=== PATIENT | female | born 1960 | race Hispanic/Latino ===

== ENCOUNTER 2020-01-15 20:28 | Emergency (ER) | payer BC ==
[~2020-01-15] VITALS: Ht 152.4 cm; Wt 54.4 kg
--- OUTSIDE RECORDS SUMMARY | 2020-01-15 20:31 | XMS REPORT ---
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 Robinson Deepa MattaFranco ENCOUNTERS Date Type Provider Location Encounter Diagnosis - Ambulatory Encounter Robinson Araujo [facility] UNK - Ambulatory Encounter Enrrique Godoy [facility] UNK - Ambulatory Encounter Robinson Bowers A Franco [facility] UNK - Ambulatory Encounter Robinson Bowers A Franco [facility] UNK - Ambulatory Encounter Robinson Guerraa Robinson A Franco Pathak [facility] UNK - Ambulatory Encounter Jennifer Abraham [facility] UNK - Ambulatory Encounter Gautam Ambriz [facility] UNK - Ambulatory Encounter Robinson A Franco Robinson A Franco [facility] UNK - Ambulatory Encounter Robinson A Franco Robinson A Franco [facility] UNK - Ambulatory Encounter Robinson A Franco Robinson A Francokatya Thomas [facility] UNK - Ambulatory Encounter Jessica Anaya [facility] UNK - Ambulatory Encounter Robinson A Franco Robinson A Franco [facility] UNK - Ambulatory Encounter Leora Mckeon [facility] UNK - Ambulatory Encounter [facility]lene [facility] UNK - Ambulatory Encounter Fax Status [facility] UNK - Ambulatory En[facility]epa [facility] - [facility] Leora Mckeon [facility] UNK - Ambulatory Encounter Leora Mckeon [facility] UNK - Ambulatory Encounter Robinson A Franco Robinson A Franco [facility] UNK - Ambulatory Encounter Robinson A Franco Robinson A Franco [place] [facility] Cervix, screening for malignant neoplasm - Ambulatory Encounter Robinson A Franco Robinson A Franco [place] [facility] Cervix, screening for malignant neoplasmScreening for malignant neoplasm, vagina - Ambulatory Encounter Robinson A Franco Gamez [facility] UNK - Ambulatory Encounter Robinson Gamez [facility] UNK - Ambulatory Encounter Robinson Gamez Wally Mckeon [place] [facility] Annual field artillery operations man examMammogram not high risk screeningScreening for vaginal cancerAtrophic vaginitisHx of osteopeniaSjogren's syndromeGERD - reflux, esophageal VITAL SIGNS Date Observation Value Provider oxygen saturation, oximetry 98 % Renata Pathak " method used to obtain blood pressure automatic Renata Pathak " Blood Pressure Position 01 SA Renata Pathak " blood pressure, site #1 left arm Renata Pathak " blood pressure, diastolic 80 mm[Hg] Renata Pathak " blood pressure, systolic 123 mm[Hg] Renata Pathak " respiratory rate E&M 16 /min Renata Pathak " pulse rate E&M 96 /min Renata Pathak " temperature site oral Renata Pathak " temperature E&M 97.7 [degF] Renata Pathak " weight E&M 107.20 lbs. Renata Pathak " weight in kilograms E&M 48.73 kg Renata Pathak " height E&M 60 [in_i] Renata Pathak " height in centimeters E&M 152.40 cm Renata Pathak method used to obtain blood pressure automatic Poli Thomas " Blood Pressure Position 01 sitting Poli Thomas " blood pressure, site #1 left arm Poli Thomas " pulse rate E&M 78 /min Poli Thomas " respiratory rate E&M 16 /min Poli Thomas " blood pressure, diastolic 68 mm[Hg] Poli Thomas " blood pressure, systolic 103 mm[Hg] Poli Thomas " oxygen saturation, oximetry 97 % Poli Thomas " weight E&M 112.38 lbs. Poli Thomas " weight in kilograms E&M 51.08 kg Poli Thomas " height E&M 60 [in_i] Poli Thomas " height in centimeters E&M 152.40 cm Poli Thomas oxygen saturation, oximetry 99 % Jessica Anaya " method used to obtain blood pressure automatic Jessica Anaya " Blood Pressure Position 01 sitting Jessica Anaya " blood pressure, site #1 left arm Jessica Anaya " blood pressure, diastolic 66 mm[Hg] Jessica Anaya " blood pressure, systolic 99 mm[Hg] Jessica Anaya " respiratory rate E&M 12 /min Jessica Anaya " pulse rate E&M 66 /min Jessica Anaya " temperature site tympanic Jessica Anaya " temperature E&M 97.8 [degF] Jessica Anaya " weight E&M 109 lbs. Jessica Anaya " weight in kilograms E&M 49.55 kg Jessica Anaya " height E&M 60 [in_i] Jessica Anaya " height in centimeters E&M 152.40 cm Jessica Anaya Allergies No Known Allergy Information REASON FOR REFERRAL Start Date - End Date Service - Mammogram - Screening RESULTS No Information Available HISTORY OF IMMUNIZATIONS No Information Available HISTORY OF MEDICATION USE Medication Instructions Dates Provider Comments ESTRACE 0.1 MG/GM VAGINAL CREAM apply vaginally qod - Robinson A Franco BONIVA 150 MG ORAL TABLET 1 pill monthly - Robinson A Franco BONIVA 150 MG ORAL TABLET 1 pill monthly po - Robinson A Franco ESTRACE 0.1 MG/GM VAGINAL CREAM apply vaginally qod - Robinson A Franco ESTRACE 0.1 MG/GM VAGINAL CREAM use intravaginally 3 times weekly, 1 gram dose - Robinson A Franco intravaginally SOCIAL HISTORY Date Observation Value Provider drug use, illicit Never Renata Pathak " alcohol use Never Renata Pathak " social history E&M . Spouse/Partner/Significant Other: Cain Long . Not homeless. Born in [facility]. 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 Sex at : Female. Sexual orientation: Heterosexual. Gender identity: Female. Gender of partner(s): Male. Sexually Active: yes. Denies STD hx Renata Pathak " social history reviewed E&M reviewed today Renata Arangos " sexual orientation Heterosexual Renata Pathak " assessment of health literacy ([place] [facility] 2014 Standards, 3C10) Adequate Renata Pathak " passive cigarette smoke exposure No Renata Pathak " smoking status never smoker Renata Pathak " Exercise Program Referral T Renata Pathak " Weight Management Counseling Provided T Renata Pathak " Nutrition intervention T Renata Pathak time of call 12/15/2018 12:49 PM Ocotluiclle Crawford Pb drug use, illicit Never Poli Thomas " alcohol use Never Poli Thomas " social history reviewed E&M reviewed today Poli Thomas " sexual orientation Heterosexual Poli William " assessment of health literacy ([facility] 2014 Standards, 3C10) Adequate Poli Thomas " is there any chance that you could be ? 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 No Jessica Anaya " passive cigarette smoke exposure No Leora Mckeon " smoking status never smoker Leora Mckeon " assessment of health literacy ([facility] 2014 Standards, 3C10) Adequate Leora Mckeon FUNCTIONAL STATUS No Information Available MENTAL STATUS Date Observation Value Provider Generalized Anxiety Disorder Questionnaire - Question 2 0 Renata Pathak " Generalized Anxiety Disorder Questionnaire - Question 1 0 Renata Pathak Generalized Anxiety Disorder Questionnaire - Question 2 0 Poli Thomas " Generalized Anxiety Disorder Questionnaire - Question 1 0 Poli Thomas Generalized Anxiety Disorder Questionnaire - Question 2 0 Leora Mckeon " Generalized Anxiety Disorder Questionnaire - Question 1 0 Leora Mckeon MEDICAL EQUIPMENT No Information Available FAMILY HISTORY No Information Available INSURANCE PROVIDERS No Information Available ADVANCE DIRECTIVES No Information Available TREATMENT PLAN Date Name Pap w/HPV w rflx 16/18/45 (30+) Pap w/HPV w rflx 16/18/45 (30+) Pap w/HPV w rflx 16/18/45 (30+) - - Est Patient Well Exam (40 - 64 Yrs) - 47026 New Patient Well Exam (40 - 64 Yrs) - [id number] New Patient Well Exam (40 - 64 Yrs) - [id number] HISTORY OF PROCEDURES No Information Available GOALS No Information Available HEALTH CONCERNS No Information Available
--- OUTSIDE RECORDS SUMMARY | 2020-01-15 20:31 | XMS REPORT ---
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 Robinson Mattaria ENCOUNTERS Date Type Provider Location Encounter Diagnosis - Ambulatory Encounter Robinson Araujo [facility] UNK - Ambulatory Encounter Enrrique Godoy [facility] UNK - Ambulatory Encounter Robinson Bowers A Franco [facility] UNK - Ambulatory Encounter Robinson Bowers A Franco [facility] UNK - Ambulatory Encounter Robinson Guerraa Robinson A Franco Pathak [facility] UNK - Ambulatory Encounter Jennifer Abraham [facility] UNK - Ambulatory Encounter Gautam Ambriz [facility] UNK - Ambulatory Encounter Robinson A Franco Robinson A Franco [facility] UNK - Ambulatory Encounter Robinson A Franco Robinson A Franco [facility] UN[facility] - Ambulatory Encounter Robinson A Franco Robinson A Francokatya Thomas [facility] UNK - Ambulatory Encounter Jessica Anaya [facility] UNK - Ambulatory Encounter Robinson A Franco Robinson A Franco [facility] UNK - Ambulatory Encounter Leora Mckeon [facility] UNK - Ambulatory Encounter Robinson A Franco [facility] Marlene [facility] UNK - Ambulatory Encounter Fax Status [facility] UNK - Ambulatory Encounter [facility]adeepa [facility] - Ambulatory Encounter Leora Mckeon [facility] UNK - Ambulatory Encounter Leora Mckeon [facility] UNK - Ambulatory Encounter Robinson A Franco Robinson A Franco [facility] UNK - Ambulatory Encounter Robinson A Franco Robinson A Franco [facility] Cervix, screening for malignant neoplasm - Ambulatory Encounter Robinson A Franco Robinson A Franco [facility] Cervix, screening for malignant neoplasmScreening for malignant neoplasm, vagina - Ambulatory Encounter Robinson A Franco Game[facility] UNK - Ambulatory Encounter Robinson Gamez [facility] UNK - Ambulatory Encounter Robinson Gamez Wally Mckeon [facility] Annual network operations lead examMammogram not high risk screeningScreening for vaginal [...] ESTRACE 0.1 MG/GM VAGINAL CREAM apply vaginally Every Other Day (1 gram ) - Robinson A Franco 42 g tube BONIVA 150 MG ORAL TABLET 1 pill [...] Cain Long . Not homeless. Born in [facility]. 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 Sex at : Female. Sexual orientation: Heterosexual. Gender identity: Female. Gender of partner(s): Male. Sexually Active: yes. Denies STD hx Renata Arangos " social history reviewed E&M reviewed today Renata Pathak " sexual orientation Heterosexual Renata Pathak " assessment of health literacy ([facility] 2014 Standards, 3C10) Adequate Renata Pathak " passive cigarette smoke exposure No Renata Pathak " smoking status never smoker Renata Pathak " Exercise Program Referral T Renata Pathak " Weight Management Counseling Provided T Renata Pathak " Nutrition intervention T Renata Pathak time of call 12/15/2018 12:49 PM Ocotlan Crawford Pb drug use, illicit Never Poli Thomas " alcohol use Never Kelliela William " social history reviewed E&M reviewed today Poli Thomas " sexual orientation Heterosexual Kelliela William " assessment of health literacy ([facility] 2014 Standards, 3C10) Adequate Poli Thomas " is there any chance that you could be ? 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 No Jessica Anaya " passive cigarette smoke exposure No Leora Mckeon " smoking status never smoker Leora Mckeon " assessment of health literacy ([facility] 2014 Standards, 3C10) Adequate Leora Mckeon FUNCTIONAL [...] Well Exam (40 - 64 Yrs) - [id number] New Patient Well Exam (40 - 64 Yrs) - [id number] New Patient Well Exam (40 - 64 Yrs) - 83766 HISTORY OF PROCEDURES No Information Available GOALS No Information Available HEALTH CONCERNS No Information Available
--- OUTSIDE RECORDS SUMMARY | 2020-01-15 20:31 | XMS REPORT ---
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 V72.3 Active Robinson Gamez MD Special investigations and examinations - Gynecological examination Atrophic vaginitis 627.3 Active Robinson Gamez MD Postmenopausal atrophic vaginitis GERD - reflux, esophageal 530.81 Active Robinson Gamez MD Esophageal reflux Hx of osteopenia V13.59 Active Robinson Gamez MD Personal history of other musculoskeletal disorders Mammogram not high risk screening V76.12 Active Robinson Gamez MD Other screening mammogram Screening for malignant neoplasm, vagina V76.47 Active Robinson Gamez MD Screening for malignant neoplasms of the vagina Screening for vaginal cancer V76.47 Active Robinson Gamez MD Screening for malignant neoplasms of the vagina Sjogren's syndrome 710.2 Active Robinson Gamez MD Sicca syndrome Cervix, screening for malignant neoplasm V76.2 Inactive Robinson Gamez MD Screening for malignant neoplasms of the cervix Cervix, screening for malignant neoplasm ICD-V76.2 Inactive Robinson Gamez MD Medication List Medication Instructions Start Date Stop Date Generic Name NDC Status Provider Patient Instruction BONIVA 150 MG ORAL TABLET 1 pill monthly po IBANDRONATE SODIUM 39114532978 Active Robinson Gamez MD Active ESTRACE 0.1 MG/GM VAGINAL CREAM apply vaginally qod ESTRADIOL [id number] Active Robinson Gamez MD Active ESTRACE 0.1 MG/GM VAGINAL CREAM use intravaginally 3 times weekly, 1 gram dose ESTRACE 0.1 MG/GM VAGINAL CREAM [id number] ESTRADIOL Inactive ESTRACE 0.1 MG/GM VAGINAL CREAM use intravaginally 3 times weekly, 1 gram dose ESTRADIOL [id number] No Longer Active Robinson Gamez MD Active Vital Signs Date Name Value Unit Range Description blood pressure, diastolic 68 mm[Hg] BP marlow blood pressure, systolic 103 mm[Hg] BP sys height E&M 60 [in_us] Bdy height pulse rate E&M 78 /min Heart rate respiratory rate E&M 16 /min Resp rate weight E&M 112.38 [lb_av] Weight Measured Procedures Code Procedure Name Date Entry Date Standard Description [id number] New Patient Well Exam (40 - 64 Yrs) - [id number] 12:03:12 CDT [id number] New Patient Well Exam (40 - 64 Yrs) - [id number] 11:10:26 CDT
--- OUTSIDE RECORDS SUMMARY | 2020-01-15 20:31 | XMS REPORT ---
Author Author [facility] Address Unknown Phone Unavailable Care Team Providers Care Cobol Mainframe Developer Name Role Phone Unavailable Unavailable Payers Payer Name Policy Type Policy Number Effective Date Expiration Date Problems This patient has no known problems. Allergies, Adverse Reactions, Alerts Allergy Name Allergy Type Status Severity Reaction(s) Onset Date Inactive Date Treating Clinician Comments Sulfa (Sulfonamide Antibiotics) DA Active U 2005-06-05 00:00:00 Medications This patient has no known medications.
--- OUTSIDE RECORDS SUMMARY | 2020-01-15 20:31 | XMS REPORT ---
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 Robinson A Franco ENCOUNTERS Date Type Provider Location Encounter Diagnosis - Ambulatory Encounter Robinson A Franco Robinson A Franco [employer] [employer] UNK - Ambulatory Encounter Robinson A Franco Robinson A Franco Renata Pathak [place] [employer] [facility] UNK - Ambulatory Encounter Jennifer Abraham [facility] - Ambulatory Encounter Gautam Ambriz [facility] UNK - Ambulatory Encounter Robinson A Franco Robinson A Franco Julianne [facility]K - Ambulatory Encounter Robinson A Franco Robinson A Franco [place] [employer] UNK - Ambulatory Encounter Robinson A Franco Robinson A Franco Renata Thomas [place] [employer] UNK - Ambulatory Encounter Jessica Anaya [facility] UNK - Ambulatory Encounter Robinson A Franco Robinson A Franco [facility] UNK - Ambulatory Encounter Leora Mckeon [place] [employer] UNK - Ambulatory Encounter Robinson A Franco Robinson A Franco [facility] UNK - [facility] Encounter Fax Status [facility] UNK - Ambulatory En[facility]a [facility] - Ambulatory Encounter Leoradeepa Mckeon [place] [employer] UNK - Ambulatory Encounter Leora Mckeon [place] [employer] UNK - Ambulatory Encounter Robinson A Franco Robinson A Franco [facility] UNK - Ambulatory Encounter Robinson A Franco Robinson A Franco [place] [employer] Cervix, screening for malignant neoplasm - Ambulatory Encounter Robinson A Franco Robinson A Franco [place] [employer] Cervix, screening for malignant neoplasmScreening for malignant neoplasm, vagina - Ambulatory Encounter Robinson A Franco Robinson A Franco [place] [employer] UNK - Ambulatory Encounter Robinson A Franco Robinson A Franco [facility] UNK - Ambulatory Encounter Robinson A Franco Robinson A Franco Siennaa Nicholas Corey Mckeon [place] [employer] Annual cook 3 pastry examMammogram not high risk screeningScreening for vaginal [...] Cain Long . Not homeless. Born in [facility]. 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 Sex at : Female. Sexual orientation: Heterosexual. Gender identity: Female. Gender of partner(s): Male. Sexually Active: yes. Denies STD hx Renata Pathak " social history reviewed E&M reviewed today Renata Pathak " sexual orientation Heterosexual Renata Pathak " assessment of health literacy ([facility] 2014 Standards, 3C10) Adequate Renata Pathak " passive cigarette smoke exposure No Renata Pathak " smoking status never smoker Renata Pathak " Exercise Program Referral T Renata Pathak " Weight Management Counseling Provided T Renata Pathak " Nutrition intervention [place] Pathak time of call 12/15/2018 12:49 PM Ocotlan Crawford Pb drug use, illicit Never Poli Thomas " alcohol use Never Poli Thomas " social history reviewed E&M reviewed today Poli Thomas " sexual orientation Heterosexual Kellialondra William " assessment of health literacy ([facility] 2014 Standards, 3C10) Adequate Poli Thomas " is there any chance that you could be ? No Poli Thomas " passive cigarette smoke exposure No Poli Thomas " smoking status never smoker Kellialondra William " Exercise Program Referral T Poli [...] health literacy ([facility] 2014 Standards, 3C10) Adequate Leora [...] Disorder Questionnaire - Question 2 0 Leora Mckoen " Generalized Anxiety Disorder Questionnaire - Question [...] Well Exam (40 - 64 Yrs) - 32747 New Patient Well Exam (40 - 64 Yrs) - 35651 New Patient Well Exam (40 - 64 Yrs) - 00917 HISTORY OF PROCEDURES No Information Available GOALS No Information Available HEALTH CONCERNS No Information Available
--- OUTSIDE RECORDS SUMMARY | 2020-01-15 20:31 | XMS REPORT ---
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 Robinson A Franco ENCOUNTERS Date Type Provider Location Encounter Diagnosis - Ambulatory Encounter Robinson A Franco Robinson A Franco [facility] UNK - Ambulatory Encounter Robinson A Franco Robinson A Franco Renata Pathak [facility] [facility] UNK - Ambulatory Encounter [facility] - Ambulatory Encounter Gautam Ambriz [facility] [place] [place] - Ambulatory Encounter Robinson A Franco Robinson A Franco [facility]K - Ambulatory Encounter Robinson A Franco Robinson A Franco [facility] [employer] UNK - Ambulatory Encounter Robinson A Franco Robinson A Franco Renata Thomas [facility] [employer] UNK - Ambulatory Encounter Jessica Anaya [facility] UNK - Ambulatory Encounter Robinson A Franco Robinson A Franco [facility] UNK - Ambulatory Encounter Leora Mckeon [facility] [employer] UNK - Ambulatory Encounter Robinson A Franco Robinson A Franco [facility] UNK [facility] UN[facility] - Ambulatory Encounter Leoradeepa Mckeon [facility] UNK - Ambulatory Encounter Leora Mckeon [facility] [employer] UNK - Ambulatory Encounter Robinson A Franco Robinson A Franco [facility] UNK - Ambulatory Encounter Robinson A Franco Robinson A Franco [facility] [employer] Cervix, screening for malignant neoplasm - Ambulatory Encounter Robinson A Franco Robinson A Franco [facility] [employer] Cervix, screening for malignant neoplasmScreening for malignant neoplasm, vagina - Ambulatory Encounter Robinson A Franco Robinson A Franco [facility] [employer] UNK - Ambulatory Encounter Robinson A Franco Robinson A Franco [facility] UNK - Ambulatory Encounter Robinson A Franco Robinson A Franco Siennaa Nicholas Corey Mckeon [facility] [employer] Annual intensive care nurse examMammogram not high risk screeningScreening for vaginal [...] Cain Long . Not homeless. Born in [facility]. 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 Sex at : Female. Sexual orientation: Heterosexual. Gender identity: Female. Gender of partner(s): Male. Sexually Active: yes. Denies STD hx Renata Pathak " social history reviewed E&M reviewed today Renata Pathak " sexual orientation Heterosexual Renata Pathak " assessment of health literacy ([place] 2014 Standards, 3C10) Adequate Renata Pathak " [...] Kellialondra William " assessment of health literacy ([facility] 2014 Standards, 3C10) Adequate Poli [...] Leora Mckeon " assessment of health literacy ([facility] 2014 Standards, 3C10) Adequate Leora [...] Well Exam (40 - 64 Yrs) - 95171 New Patient Well Exam (40 - 64 Yrs) - [id number] New Patient Well Exam (40 - 64 Yrs) - [id number] HISTORY OF PROCEDURES No Information Available GOALS No Information Available HEALTH CONCERNS No Information Available
--- NOTE | 2020-01-15 21:48 | Diagnostic Imaging Report ---
X-ray right foot 3 views HISTORY: Pain. COMPARISON: None available. FINDINGS: Bones: No acute displaced fracture. Osseous alignment is within normal limits. Joints: The joint spaces are well-maintained. Soft tissues: The soft tissues appear unremarkable. IMPRESSION: No acute radiographic abnormality. Signed by: Donte Lopez DO on 01/15/2020 9:45 PM
== END 2020-01-15 22:09 | disposition home or self-care (01) ==
LOC: ER 20:28
DX: M79.671 Pain in right foot (principal); S93.621A Sprain of tarsometatarsal ligament of right foot, initial encounter; Y93.01 Activity, walking, marching and hiking; Y92.830 Public park as the place of occurrence of the external cause
CPT/HCPCS: 99283